=== PATIENT | female | born 1990 | race African-American/Black ===

== ENCOUNTER 2017-01-06 16:59 | Emergency (ER) | payer OTHER ==
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
[2017-01-06 17:15] VITALS: BMI 21.6
[2017-01-06] MEDS ORDERED: traMADol HCL 50 MG TABLET PO ONE (17:39)
[2017-01-06] MEDS ORDERED: traMADol HCL 50 MG TABLET ONE (17:50)
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
[2017-01-06] MEDS ORDERED: morphine CARPU-JECT 2 MG/1 ML DISP.SYRIN IVPUSH ONE (19:50)
[2017-01-06] MEDS ORDERED: ONDANSETRON 4 MG/2 ML VIAL IVPUSH ONE (19:50)
[2017-01-06] MEDS ORDERED: morphine CARPU-JECT 2 MG/1 ML DISP.SYRIN ONE (20:04)
[2017-01-06] MEDS ORDERED: ONDANSETRON 4 MG/2 ML VIAL ONE (20:05)
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
[2017-01-06 20:26] LABS: BASOPHIL 0.3 % (0-2.0); EOSINOPHIL 0.2 % (0-4.5); MCH 30.7 pg (25.7-33.7); MCHC 34.8 g/dl (32.0-36.0); MEAN CELL VOLUME 88.2 fl (80-96); MEAN PLT VOLUME 7.9 fl (7.5-11.1); NEUTROPHILS 84.2 % (42.8-82.8); PLATELET COUNT 299 K/MM3 (134-434); RDW 13.7 % (11.6-15.6); WHITE BLOOD COUNT 8.1 K/mm3 (4.0-10.0)
[2017-01-06 20:46] LABS: INR 1.19 (0.82-1.09); PROTHROMBIN TIME (PATIENT) 13.1 SEC (9.98-11.88)
[2017-01-06 21:10] LABS: ALBUMIN 3.9 g/dl (3.4-5.0); ANION GAP 7 (8-16); BILIRUBIN,TOTAL 0.5 mg/dL (0.2-1.0); CALCIUM 8.8 mg/dL (8.5-10.1); CO2 26 mmol/L (21-32); CREATININE 0.7 mg/dL (0.55-1.02); GLUCOSE,RANDOM 100 mg/dL (74-106); SGOT/AST 16 U/L (15-37); SGPT/ALT 20 U/L (12-78); TOT PROT 7.1 g/dl (6.4-8.2)
[2017-01-06 21:11] LABS: ALK PHOS 47 U/L (45-117)
[2017-01-06 21:54] VITALS: BP 140/76; PULSE 70; TEMP 97.8
== END 2017-01-06 23:00 | disposition short-term general hospital (02) ==
LOC: JER 16:59
PROC: 3E033NZ Introduction of Analgesics, Hypnotics, Sedatives into Peripheral Vein, Percutaneous Approach (ICD-10-PCS; principal; 2017-01-06)
PROC: 3E033GC Introduction of Other Therapeutic Substance into Peripheral Vein, Percutaneous Approach (ICD-10-PCS; 2017-01-06)
DX: S02.82XA Fracture of other specified skull and facial bones, left side, initial encounter for closed fracture (principal); S02.32XA Fracture of orbital floor, left side, initial encounter for closed fracture; S06.891A Other specified intracranial injury with loss of consciousness of 30 minutes or less, initial encounter; Y04.2XXA Assault by strike against or bumped into by another person, initial encounter; Y93.89 Activity, other specified; Y92.89 Other specified places as the place of occurrence of the external cause; Y07.03 Male partner, perpetrator of maltreatment and neglect
CPT/HCPCS: 36415; 70480-TC; 80053; 84703; 85025; 85610; 99285-25

== ENCOUNTER 2017-03-19 08:13 | Inpatient (IN) | payer OTHER ==
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
--- NOTE | 2017-03-19 08:33 | PDOC ---
*Physical Exam - Vital Signs Last Vital Signs Temp Pulse Resp BP Pulse Ox 98.1 F 117 H 20 126/55 97 03/19/17 08:14 03/19/17 08:14 03/19/17 08:14 03/19/17 08:14 03/19/17 08:14 ED Treatment Course - LABORATORY CBC & Chemistry Diagram: 03/19/17 10:44 Medical Decision Making - Medical Decision Making 03/19/17 08:33 Pt seen by the Advanced Practice Provider under my direct supervision Ancillary studies reviewed I agree with plan as outlined by the Advanced Practice Provider JUANA Stewart *DC/Admit/Observation/Transfer Diagnosis at time of Disposition: Retained products of conception, Vaginal bleeding - Discharge Dispostion Disposition: HOME Condition at time of disposition: Improved - Prescriptions - Referrals - Patient Instructions - Post Discharge Activity
[2017-03-19] MEDS ORDERED: ONDANSETRON 4 MG/2 ML VIAL ONE (08:51)
[2017-03-19] MEDS ORDERED: SODIUM CHLORIDE 1,000 ML IV STA ×4 (09:02→12:10)
[2017-03-19] MEDS ORDERED: ONDANSETRON 4 MG/2 ML VIAL IVPB ONE (09:03)
[2017-03-19 09:11] LABS: BASOPHIL 0.6 % (0-2.0); EOSINOPHIL 1.7 % (0-4.5); MCH 29.6 pg (25.7-33.7); MEAN CELL VOLUME 87.1 fl (80-96); MEAN PLT VOLUME 7.5 fl (7.5-11.1); NEUTROPHILS 62.9 % (42.8-82.8); PLATELET COUNT 344 K/MM3 (134-434); RDW 12.7 % (11.6-15.6); WHITE BLOOD COUNT 4.6 K/mm3 (4.0-10.0)
[2017-03-19] MEDS ORDERED: ACETAMINOPHEN INJECTION 100 ML IVPB ONE (09:57)
[2017-03-19] MEDS ORDERED: ACETAMINOPHEN 1000 MG/100 ML VIAL (NON FORMULARY) IVPB ONE (09:57)
[2017-03-19] MEDS ORDERED: morphine CARPU-JECT 2 MG/1 ML DISP.SYRIN IVPUSH ONE (10:35)
[2017-03-19] MEDS ORDERED: morphine SULFATE 4 MG/ML VIAL ONE (10:41)
[2017-03-19 11:04] LABS: MCH 30.2 pg (25.7-33.7); MCHC 34.6 g/dl (32.0-36.0); MEAN CELL VOLUME 87.2 fl (80-96); MEAN PLT VOLUME 7.2 fl (7.5-11.1); PLATELET COUNT 254 K/MM3 (134-434); RDW 12.8 % (11.6-15.6); WHITE BLOOD COUNT 7.7 K/mm3 (4.0-10.0)
[2017-03-19 11:29] LABS: INR 1.13 (0.82-1.09); PROTHROMBIN TIME (PATIENT) 12.8 SEC (9.98-11.88)
[2017-03-19] MEDS ORDERED: HYDROmorphone HCL CARPU-JECT 1 MG/1 ML DISP.SYRIN ONE (11:33)
[2017-03-19] MEDS ORDERED: HYDROmorphone HCL CARPU-JECT 2 MG/1 ML DISP.SYRIN IVPUSH ONE (11:36)
[2017-03-19] MEDS ORDERED: ACETAMINOPHEN 325 MG TABLET (FP) PO PRN (12:08)
[2017-03-19] MEDS ORDERED: IBUPROFEN 400 MG TABLET (FP) PO PRN (12:08)
--- NOTE | 2017-03-19 12:10 | HP ---
[facility] - Chief Complaint Chief Complaint: vaginal bleeding due to msised History Source: Patient - Past Medical History Allergies/Adverse Reactions: Allergies Allergy/AdvReac Type Severity Reaction Status Date / Time latex Allergy Swelling Verified 03/19/17 08:17 ...LMP: 12/24/16 ...: Yes Heme/Onc: Yes: Anemia - Current Medications Current Medications: Home Medications Medication Instructions Recorded Cholecalciferol (Vitamin D3) 2,000 unit PO DAILY 01/06/17 [Vitamin D3] Ibuprofen [Motrin -] 600 mg PO QID PRN #28 tablet 03/19/17 Satellite Physical Exam - Physical Examination Vital Signs: Vital Signs Period Temp Pulse Resp BP Sys/Duff Pulse Ox Last 24 Hr 98.1 F 68-117 17-20 96-126/47-83 97-100 General Appearance: Well Nourished, Well Developed ENT: Clear Lung: Clear to auscultation Heart: Regular rate & rhythm Breasts: Soft, Non-Tender Abdomen: Soft Extremities: No edema Pelvic Exam: Within normal limits External Genitalia, Within normal limits Cervix, Within normal limits Adenexa, Other Vagina (500 cc of bleed), Other Uterus ([id number]) Neurological: Intact, Alert, Oriented Satellite Impression/Plan - Impression/Plan Impression: Incomplete Operative Procedure: Suction DC Date to be Performed: 03/19/17
--- NOTE | 2017-03-19 12:11 | OP ---
Operative Note - Note: Operative Date: 03/19/17 Pre-Operative Diagnosis: Incoplete Operation: Suction DC Post-Operative Diagnosis: Same as Pre-op Surgeon: Lisa So Anesthesia: General Operative Report Dictated: Yes
[2017-03-19] MEDS ORDERED: ONDANSETRON 4 MG/2 ML VIAL IVPUSH PRN (12:32)
[2017-03-19] MEDS ORDERED: PROMETHAZINE HCL 25 MG/1 ML VIAL IVPUSH PRN (12:32)
[2017-03-19] MEDS ORDERED: PROPOFOL 20 ML ONE (12:38)
[2017-03-19] MEDS ORDERED: MIDAZOLAM HCL 2 MG/2 ML SINGLE DOSE VIAL ONE (12:38)
[2017-03-19] MEDS ORDERED: ceFAZolin SODIUM 1 GM VIAL IVPB ONE (12:39)
[2017-03-19] MEDS ORDERED: LACTATED RINGERS SOLUTION 1,000 ML IV SCH (12:45)
[2017-03-19] MEDS ORDERED: SODIUM CHLORIDE 0.9% P/F 10 ML VIAL IJ ONE (12:45)
[2017-03-19] MEDS ORDERED: LIDOCAINE HCL/PF 2% SDV 5ML VIAL ONE (12:46)
[2017-03-19] MEDS ORDERED: ceFAZolin SODIUM 1 GM VIAL ONE (12:46)
[2017-03-19] MEDS ORDERED: OXYTOCIN 10 UNITS/ML VIAL ONE (12:53)
[2017-03-19 18:26] VITALS: BP 104/48; PULSE 79; TEMP 98
--- NOTE | 2017-03-20 22:02 | OP ---
DATE OF OPERATION: 03/19/2017 PREOPERATIVE DIAGNOSIS: Incomplete . OPERATION: Suction dilation and curettage. POSTOPERATIVE DIAGNOSIS: Incomplete . SURGEON: Lisa So MD ANESTHESIA: General. ANESTHESIOLOGIST: Hedy Grullon MD PROCEDURE: Patient was taken to the operating room and placed in the dorsal lithotomy position, prepped and draped in the usual sterile fashion. A timeout was performed in accordance with hospital regulation. Speculum was placed in the vagina. Large amount of clot and tissue was seen coming out of the cervix. Approximately 400 mL of clotted material was submitted with suction dilation and curettage. A tenaculum was placed on the cervix and a number 8 suction curettage was inserted and suction dilation and curettage was performed. The contents were submitted to pathology. Estimated blood loss was 500 mL. All instruments were then removed. Patient tolerated the procedure well. LISA SO M.D. [id number]
--- NOTE | 2017-03-23 15:56 | PATH ---
Surgical Pathology Report Patient Name: NADINE GUZMÁN Med. Rec. #: [id number] /Age/Gender: 1990 (Age: 26) / F Account: [id number] Location: [facility] MED/SURG Taken: 03/19/2017 Received: 03/21/2017 Reported: 03/23/2017 Physicians: Lisa So M.D. Specimen(s) Received PRODUCTS OF CONCEPTION Clinical History Incomplete Final Diagnosis PRODUCTS OF CONCEPTION, DILATATION AND CURETTAGE: IMMATURE CHORIONIC VILLI AND DECIDUA CONSISTENT WITH PRODUCTS OF CONCEPTION. Electronically Signed Pilar Davis M.D. Gross Description Received in formalin labeled "products of conception," is a 16.0 x 13.5 x 3.5 cm aggregate of lazo-brown soft tissue fragments admixed with blood clot. Villous tissue is identified. No somatic tissue is identified. A circulation representative portion is submitted in one cassette. /03/21/2017 saudi03/21/2017
== END 2017-03-19 16:45 | disposition home or self-care (01) | DRG 544 ==
LOC: JER 08:13 → JERBED 11:46 → J7W 14:10
PROVIDERS: ADMIT Obstetrics & Gynecology; ATTEND Obstetrics & Gynecology
PROC: 10D17ZZ Extraction of Products of Conception, Retained, Via Natural or Artificial Opening (ICD-10-PCS; principal; 2017-03-19 12:28)
DX: O03.4 Incomplete spontaneous abortion without complication (principal); N93.8 Other specified abnormal uterine and vaginal bleeding
CPT/HCPCS: 36415; 36430; 76801-TC; 84702; 85025; 85027; 85610; 86850; 86900; 86901; 86922; 88305-TC; 94760; 99285-25; P9038; P9058